=== PATIENT | female | born 1980 | race Caucasian/White ===

== ENCOUNTER 2024-03-04 11:50 | Inpatient (IN) | payer MEDICAID ==
[~2024-03-04] VITALS: Ht 160 cm; Wt 66.8 kg
[2024-03-04 15:05] VITALS: BP 149/96; PULSE 82; RESP 12; TEMP 97.5; O2SAT 100
[2024-03-04] MEDS ORDERED: loperamide 2mg capsule PO PRN (15:25)
[2024-03-04] MEDS ORDERED: magnesium hydroxide 30ml (MOM) UD suspension PO PRN (15:25)
[2024-03-04] MEDS ORDERED: acetaminophen 325mg tablet PO PRN (15:25)
[2024-03-04] MEDS ORDERED: mag hydrox/Alum hydrox/simeth 30ml oral suspension PO PRN (15:25)
[2024-03-04] MEDS: acetaminophen 325mg tablet PO PRN (15:42)
[2024-03-04 15:44] VITALS: RESP 12; O2SAT 100
--- NOTE | 2024-03-04 15:50 | NUR ---
Admit note: Pt admitted [facility] to [facility] today on 5150 for DTS from [facility] at 1507. Pt drank half a bottle Nyquil and 4000mg ibuprophen stating "I dont want to be here anymore" attempting suicide. She stated earlier in the week she attempted to commit suicide by taking multiple sleeping pills, but was stopped by her adult son who took them out of her mouth. She is tearful, depressed and crying.. Pt has history of Major depression. Addendum: 03/04/24 at 1659 by Carole Ford RN Pt stopped taking her medications for depression in 2022 because she states she was feeling better. Pt has never been psychiatrically hospitalized. Per medical record "Patient had her birthday yesterday and felt suicidal as her children wanted to spend the day with their father and not her." Medical Hx: Endoscopic US with biliary stent removal, mechanical lithotripsy, complete common bile duct extraction in 2020. Cystoscopy with left ureteral stent placement, pelvic abscess drainage, bilateral salpingectomy, Open reduction and internal fixation of left elbow, cholecystectomy, hysterectomy. Per hospital chart pt had a 3.1 K, which was replaced. Pt presents as tearful, however cooperative with admissions. Pt reports that an abscess removal surgery from her rectum has caused her to need to wear briefs for stool incontinence. Pt arrived with a supply of briefs; supplied pt with one. Pt states the event that led to her being here were feelings that her and children might abandon her. 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 Pt became calm and was smiling after explaining her hold, a tour of the unit and a phone to call her family.
[2024-03-04] MEDS ORDERED: LOSA100T58 PO (16:03)
[2024-03-04] MEDS ORDERED: FERR-106 PO (16:03)
[2024-03-04] MEDS ORDERED: ASCO500T23 PO (16:03)
[2024-03-04] MEDS ORDERED: AMLO10TA13 PO (16:03)
[2024-03-04] MEDS ORDERED: METO-411 PO (16:03)
[2024-03-04] MEDS ORDERED: hydrOXYzine 25 MG tablet PO PRN ×2 (16:10→16:15)
[2024-03-04 19:00] VITALS: RESP 16; O2SAT 94
[2024-03-04 19:33] VITALS: BP 136/85; PULSE 82; RESP 16; TEMP 97.2; O2SAT 94
--- NOTE | 2024-03-05 01:15 | NUR ---
NURSING PROGRESS NOTE: Steph Problem: (admit note) Pt admitted [facility] to [facility] today on 5150 for DTS from [facility] at 1507. Pt drank half a bottle Nyquil and 4000mg ibuprophen stating "I dont want to be here anymore" attempting suicide. She stated earlier in the week she attempted to commit suicide by taking multiple sleeping pills, but was stopped by her adult son who took them out of her mouth. She is tearful, depressed and crying.. Pt has history of Major depression. Intervention: Performed 1:1 nursing assessment, provided active listening/therapeutic communication, Q15 minute rounding, q1hr nurse rounds. Maintained a safe and supportive environment. Response: Pt. received lying in bed reading at change of shift. Pt. is pleasant and cooperative . Pt. noted sitting in the community room socializing with the MANAGER OF REGULATORY AFFAIRS. Participated in evening snack. Pt. has no scheduled night medications. Pt. denies SI and depression/anxiety stating "I'm calm. I talked to my kids and feeling calm. I dont know if it's the environment ". Pt. read a book quietly in bed before falling asleep. No concerns expressed this shift. Observed and appears sleeping without difficulty. Plan: TBD with psychiatrist Addendum: 03/05/24 at 0233 by Trudi Payne RN I have reviewed the PLASTER APPLICATOR note. Trudi Payne RN Addendum: 03/05/24 at 0449 by Sofia Lopez LVN pt. zac FINNEY
[2024-03-05 07:00] VITALS: BP 138/78; PULSE 80; RESP 16; TEMP 98.5; O2SAT 97
[2024-03-05] MEDS: metoprolol succinate 25mg (24-HOUR) SR. Tablet PO SCH (08:15)
[2024-03-05] MEDS: amLODIPine 5mg tablet PO SCH (08:16)
[2024-03-05 09:18] LABS: HEMOGLOBIN A1C 5.1 % (4.5-6.2)
[2024-03-05 09:24] LABS: CHOL/HDL RATIO 3.3 (0.00-4.99); CHOLESTEROL 178 MG/DL (0-200); HDL CHOLESTEROL 54 MG/DL (35-60); LDL CHOLESTEROL 101 MG/DL (50-100); TRIGLYCERIDES 133 MG/DL (20-135)
[2024-03-05] MEDS ORDERED: LORazepam 0.5 MG tablet PO PRN (11:55)
--- NOTE | 2024-03-05 17:50 | NUR ---
NURSING PROGRESS NOTE: Steph Problem: (admit note) Pt admitted [facility] to [facility] today on 5150 for DTS from [facility] at 1507. Pt drank half a bottle Nyquil and 4000mg ibuprophen stating "I dont want to be here anymore" attempting suicide. She stated earlier in the week she attempted to commit suicide by taking multiple sleeping pills, but was stopped by her adult son who took them out of her mouth. She is tearful, depressed and crying.. Pt has history of Major depression. Intervention: Performed 1:1 nursing assessment, provided active listening/therapeutic communication, Q15 minute rounding, q1hr nurse rounds. Response: Received patient sleeping in bed at change of shift. Patient joins peers in dining room for breakfast and returns to her room. Patient takes her medications without incident. Patient denies SI/HI, AVH. Patient stating she wants to leave at the end of the three day hold. Patient was reading a book intermittently throughout the day. Patient sits with roommate in the dining room for meals, but then self-isolates to her room. Patient complained of a headache and received Tylenol and was able to get a nap in the afternoon. Plan: Maintain a safe and supportive environment with medication titrations.
[2024-03-05 19:00] VITALS: BP 119/77; PULSE 65; RESP 16; TEMP 97.8; O2SAT 97
[2024-03-05] MEDS: mirtazapine 15mg tablet PO SCH (20:25)
[2024-03-05] MEDS: nitrofurantoin macrocrystal 50mg capsule PO SCH (20:26)
--- NOTE | 2024-03-06 03:04 | NUR ---
NURSING PROGRESS NOTE: Problem: Depression, self-isolative, [place] [place] Intervention: 1:1 nursing assessment, active listening/therapeutic communication, Q15 minute rounding, q1hr nurse rounds. Maintained a safe and supportive environment. Response: Knife Grinder received patient around midnight. Per previous nurse, patient is pleasant and cooperative; compliant with medication. She denied SI, HI, A/VH; continues to express feelings of depression and self isolative this shift. Patient is observed sleeping and does not appear to be having difficulty. Plan: Continues to require interruption of current crisis in a safe and therapeutic environment with possible medication adjustments.
--- NOTE | 2024-03-06 05:59 | NUR ---
Reviewed the nurses' pt. documentation and assessment.
[2024-03-06 07:00] VITALS: RESP 16; O2SAT 95
[2024-03-06 08:00] VITALS: BP 146/96; PULSE 81; RESP 16; TEMP 98.3; O2SAT 95
--- NOTE | 2024-03-06 14:46 | NUR ---
Nursing Progress Note: Steph Problem: PALA, isolative, UTI, occasional bowel incontinence Intervention: Performed 1:1 nursing assessment, provided medication administration, education, monitoring, active listening/therapeutic communication, Q15 minute rounding. Maintained a safe and supportive environment. Response: Patient is pleasant and cooperative this shift, she remains compliant with scheduled medication and 1:1 assessment. She denies all mental health symptoms at this time: SI/HI, anxiety, depression, AVH, paranoia. Smiles and reports that she is "doing good." Patient isolated to her room for majority of the day, though she did attend all meals in the community room. She declined to participate in group, but she appeared to enjoy reading a book in her room. She showered with prompting and then visited with her family. Patient is receiving ABO for UTI, no AR/SE noted or reported. 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 Plan: Continues to require therapeutic environment until safe discharge plan is obtained. Addendum: 03/06/24 at 1733 by Michael Dey RN I have reviewed this PHARMACY SERVICES DIRECTOR documentation.
[2024-03-06 19:00] VITALS: RESP 14; O2SAT 97
[2024-03-06 20:00] VITALS: BP 117/75; PULSE 82; RESP 14; TEMP 97.9; O2SAT 97
--- NOTE | 2024-03-06 22:45 | NUR ---
Nursing Progress Note: Steph Problem: [place], Anxiety, UTI, occasional bowel incontinence Intervention: Performed 1:1 nursing assessment, provided medication administration, education, monitoring, active listening/therapeutic communication, Q15 minute rounding. Maintained a safe and supportive environment. Response: Patient overall pleasant and cooperative, patient continues to be compliant with medication. patient still recieving ABX for UTI. no issues to note. During 1:1, patient denies all MH symptoms. Patient reports possibly leaving tomorrow, expressing how appreciative she is of freedom after having to stay here in [facility]. Patient reports feeling a little bit of anxiety earlier due to her not being sure her family was coming to visit like planned. visit went good with and daughter. Family brought patient some personal breifs due to her incontinence of bowel and more books to read. Patient returned to room to read where she remained for the rest of the night. Patient signed voluntary status today. Plan: Continues to require therapeutic environment until safe discharge plan is obtained. Addendum: 03/07/24 at 0425 by Jorge Schaefer RN I have reviewed this CONVERTING OPERATOR documentation.
[2024-03-07] MEDS ORDERED: NITR50CA PO (06:26)
[2024-03-07] MEDS ORDERED: NOR5T PO (06:26)
[2024-03-07] MEDS ORDERED: Lorazepam PO (06:26)
[2024-03-07] MEDS ORDERED: METO-395 PO (06:26)
[2024-03-07] MEDS ORDERED: FERR-106 PO (06:26)
[2024-03-07] MEDS ORDERED: HYDR-3686 PO (06:26)
[2024-03-07] MEDS ORDERED: MIRT-87 PO (06:26)
[2024-03-07 07:30] VITALS: BP 116/79; PULSE 71; RESP 15; TEMP 97.6; O2SAT 96
[2024-03-07 07:59] VITALS: BP_SYST 116; PULSE 71
--- NOTE | 2024-03-07 12:00 | NUR ---
DISCHARGE NOTE: Pt. discharged to home, picked up by daughter in auto, pt. not driving. Pt. discharged with all belongings. RN went over all discharge paperwork with pt. including firearms restriction, emergency phone numbers, including 911, discharge medications and f/u appointments. Pt. denies SI/HI, A/V hallucinations. Pt. is A&Ox4 and in no apparent distress. Pt. ambulated out of hospital.
== END 2024-03-07 12:00 | disposition home or self-care (01) | DRG 751 ==
LOC: ADULT MH 11:50
PROVIDERS: ADMIT Psychiatry & Neurology Psychiatry; ATTEND Psychiatry & Neurology Psychiatry
PROC: GZHZZZZ Group Psychotherapy (ICD-10-PCS; principal; 2024-03-05)
DX: F32.2 Major depressive disorder, single episode, severe without psychotic features (principal); R45.851 Suicidal ideations; I10 Essential (primary) hypertension; T50.902A Poisoning by unspecified drugs, medicaments and biological substances, intentional self-harm, initial encounter; Z79.899 Other long term (current) drug therapy; Z90.711 Acquired absence of uterus with remaining cervical stump; Y92.89 Other specified places as the place of occurrence of the external cause; Z81.1 Family history of alcohol abuse and dependence
CPT/HCPCS: 36415; 80061; 83036; 87081